=== PATIENT | male | born 1980 | race Caucasian/White ===

== ENCOUNTER 2022-10-10 10:18 | Outpatient (CLI) | payer BC | END 2022-10-10 10:19 | disposition home or self-care (01) | LOC: CSHCT 10:18 | PROVIDERS: ATTEND Otolaryngology Plastic Surgery within the Head & Neck | DX: H90.0 Conductive hearing loss, bilateral (principal); H72.93 Unspecified perforation of tympanic membrane, bilateral; H74.8X2 Other specified disorders of left middle ear and mastoid | CPT/HCPCS: 70480 ==